=== PATIENT | female | born 1950 | race Caucasian/White ===

== ENCOUNTER 2018-10-27 13:19 | Inpatient (IN) | payer OTHER ==
[2018-10-27 14:30] LABS: Absolute Lymphocytes (CBC) 0.8 K/uL (0.7-4.9); Absolute Neutrophil 10.4 K/uL (1.8-8.0); Basophils % 0.2 % (0-1.3); Hematocrit 40.5 % (36.0-45.0); Lymphocytes % 6.3 % (15.3-44.8); Monocytes % 7.9 % (3.3-12.3); RBC Red Blood Cell Count 4.36 M/uL (3.86-4.86)
[2018-10-27 14:44] LABS: Albumin 3.4 g/dL (3.4-5.0); Magnesium 2.2 mg/dL (1.8-2.4); Potassium 3.7 mmol/L (3.5-5.1); Protein, Total 7.3 g/dL (6.4-8.2)
[2018-10-27 14:47] LABS: Troponin (Emerg Dept Use Only) 0.69 ng/mL (0.0-0.045)
--- NOTE | 2018-10-27 15:25 | RAD REPORT ---
EXAM DESCRIPTION: CT - Chest For Pe Angio - 10/27/2018 3:10 pm CLINICAL HISTORY: Acute onset shortness of breath COMPARISON: None. TECHNIQUE: Dynamically enhanced 3 mm thick images of the chest were obtained during administration o f approximately 150mL Isovue 370 IV contrast. Coronal and oblique MIP reconstruction images were gene rated and reviewed. Exam utilizes a protocol to evaluate the pulmonary arterial tree. All CT scans are performed using dose optimization technique as appropriate and may include automated exposure control or mA/KV adjustment according to patient size. FINDINGS: Patient has large pulmonary emboli at the bifurcation of each pulmonary artery into the lo bar branches. Pulmonary embolic disease extends into the left upper and lower lobe pulmonary arteries . Embolic disease extends into the right upper and right lower lobe pulmonary arteries. Right lower l obe embolic disease extends into segmental branches. The aorta as imaged shows no acute or suspicious finding. No pericardial thickening or effusion. Airspace opacification posterior gutter on the right could be pneumonia. In the setting of pulmonary embolic disease, pulmonary hemorrhage is not excluded. No pleural effusion or pleural thickening. No mediastinal or hilar suspicious masses. No chest wall masses or abnormal axillary lymphadenopathy. A 10 millimeter pulmonary nodule abuts the pleura lateral lower left lung field. This is centrally hy perdense and 160 Hounsfield units and is probably partially mineralized granuloma. Findings telephoned to Lexi in the emergency department 3:20 p.m. IMPRESSION: Extensive pulmonary embolic disease in each pulmonary artery extending into the left upp er, left lower, right upper and right lower lobe pulmonary arteries. Right lower lobe embolic disease extends into segmental branches. Patchy airspace opacification in the posterior gutter on the right. This is typically pneumonia. Give n the extent of pulmonary embolic disease, pulmonary hemorrhage is not excluded. No other significant or suspicious findings.
--- NOTE | 2018-10-27 15:29 | ER ---
Nurse's Notes [facility] Name: Olive Minor Age: 68 yrs Sex: Female : 1950 Arrival Date: 10/27/2018 Time: 13:22 Bed 4 Private MD: Diagnosis: Bilateral Pulmonary Embolism Presentation: 10/27 13:20 Presenting complaint: EMS states: pt had sudden SOB. PT was cold, pale and diaphoretic, ca1 SPO2 77% RA, increased to 88-90% on 2LPM O2. Transition of care: patient was not received from another setting of care. Onset of symptoms was October 27, 2018. Risk Assessment: Do you want to hurt yourself or someone else? Patient reports no desire to harm self or others. Initial Sepsis Screen: Does the patient meet any 2 criteria? RR > 20 per min. HR > 90 bpm. Does the patient have a suspected source of infection? No. Patient's initial sepsis screen is negative. Care prior to arrival: IV initiated. 20 GA, in the left antecubital area. 13:20 Method Of Arrival: EMS: [facility] ca1 13:20 Acuity: DAVE 2 ca1 Triage Assessment: 13:26 General: Appears in no apparent distress. ill, Behavior is calm, cooperative, ca1 appropriate for age. Pain: Complains of pain in left arm Pain does not radiate. Historical: - Allergies: 13:26 No Known Allergies; ca1 - Home Meds: 13:26 Lopressor Oral [Active]; ca1 - PMHx: 13:26 Hypertension; ca1 - PSHx: 13:26 None; ca1 - Immunization history:: Pneumococcal vaccine is up to date, Flu vaccine is not up to date. - Ebola Screening: : No symptoms or risks identified at this time. - Social history:: Smoking status: Patient/guardian denies using tobacco. Screenin:30 Abuse screen: Denies threats or abuse. Denies injuries from another. Nutritional ca1 screening: No deficits noted. Tuberculosis screening: No symptoms or risk factors identified. Fall Risk IV access (20 points). Assessment: 13:30 General: Appears in no apparent distress. uncomfortable, Behavior is calm, cooperative, ca1 appropriate for age. Pain: Complains of pain in left arm Pain does not radiate. Pain currently is 2 out of 10 on a pain scale. Pain began suddenly. Neuro: Level of Consciousness is awake, alert, obeys commands, Oriented to person, place, time, situation. Cardiovascular: Heart tones S1 S2 present Capillary refill < 3 seconds Patient's skin is warm and dry. Rhythm is sinus tachycardia. Respiratory: Airway is patent Respiratory effort is even, unlabored, Respiratory pattern is regular, symmetrical, Breath sounds are clear bilaterally. GI: Abdomen is flat, non-distended, Bowel sounds present X 4 quads. Abd is soft and non tender X 4 quads. : No signs and/or symptoms were reported regarding the genitourinary system. EENT: No signs and/or symptoms were reported regarding the EENT system. Derm: Skin is intact, Skin is pink, warm \T\ dry. Musculoskeletal: Circulation, motion, and sensation intact. 13:30 Reassessment: Pt's 2 year old grandson at bedside. PT reports she is the primary ca1 guardian of grandson and was unable to contact grandson's father to come and pick him up. 2-year old being taken care of by ER staff at this time. . 14:15 Reassessment: Patient appears in no apparent distress at this time. Patient and/or ca1 family updated on plan of care and expected duration. Pain level reassessed. Patient is alert, oriented x 3, equal unlabored respirations, skin warm/dry/pink. Instructed patient on bedrest. 14:20 Reassessment: Pt requested to go to restroom, emphasized importance of bedrest. ca1 Provided a bed najera, refused assistance and requested privacy. After using bed najera, pt reports of SOB, notified provider. 14:30 Reassessment: Pt reports feeling better. ca1 15:26 Reassessment: Patient appears in no apparent distress at this time. Patient and/or ca1 family updated on plan of care and expected duration. Pain level reassessed. Patient is alert, oriented x 3, equal unlabored respirations, skin warm/dry/pink. Dr. Velásquez at bedside. 15:30 Reassessment: Police was sent to pt's son address and they were unable to locate him. ca1 pipe and boiler covers supervisor notified and CPS notified by annual greenhouse manager (Denice Arambula RN). 16:31 Reassessment: Patient appears in no apparent distress at this time. Patient and/or ca1 family updated on plan of care and expected duration. Pain level reassessed. Patient is alert, oriented x 3, equal unlabored respirations, skin warm/dry/pink. Awaiting room assignment. 17:15 Reassessment: pipe and boiler covers supervisor reports CPS and pt's son on their way to picker box operator 1-year ca1 old. . 17:45 Reassessment: CPS and pt's son here to picker box operator 1-year old.. ca1 Vital Signs: 13:26 BP 144 / 102; Pulse 113; Resp 24; Temp 97.9; Pulse Ox 77% on R/A; Weight 61.23 kg; ca1 Height 5 ft. 4 in. (162.56 cm); Pain 2/10; 14:20 BP 137 / 91; Pulse 108; Resp 24; Pulse Ox 100% on Non-rebreather mask; ca1 15:19 BP 168 / 98; Pulse 118; Resp 24; Pulse Ox 99% on 5 lpm NC; ca1 16:24 BP 162 / 98; Pulse 98; Resp 24; Pulse Ox 95% on 5 lpm NC; ca1 17:18 BP 168 / 95; Pulse 116; Resp 23; Pulse Ox 95% on 5 lpm NC; ca1 13:26 Body Mass Index 23.17 (61.23 kg, 162.56 cm) ca1 ED Course: 13:22 Patient arrived in ED. ca1 13:22 Chika Navarro RN is Primary Nurse. ca1 13:24 Giacomo Velásquez MD is Attending Physician. ps1 13:25 Triage completed. ca1 13:26 Arm band placed on right wrist. ca1 13:30 Patient has correct armband on for positive identification. Placed in gown. Bed in low ca1 position. Call light in reach. Side rails up X2. tow truck driver on. Pulse ox on. NIBP on. Warm blanket given. Head of bed elevated. 13:30 Maintain EMS IV. Dressing intact. Good blood return noted. Site clean \T\ dry. Gauge \T\ ca 1 site: G20 RAC. IV is patent, is intact. 13:37 Radiology exam delayed due to lab results not completed at this time. (BUN/Creatinine). mw3 15:09 CT completed. Patient tolerated procedure well. Patient moved back from CT. mw3 15:10 CT Chest For PE Angio In Process Unspecified. EDMS 15:28 Nic Chong MD is Hospitalizing Provider. ps1 15:54 Inserted saline lock: 22 gauge in right wrist, using aseptic technique. ,using aseptic ca1 technique. by Dottie Beltran RN. 17:34 No provider procedures requiring assistance completed. Patient admitted, IV remains in ca1 place. Administered Medications: 15:56 Drug: Heparin (DVT/PE- Bolus per protocol) - HEParin 80 units/kg {Co-Signature: aa5 ca1 (Dottie Beltran RN).} Route: IVP; Site: right wrist; 17:10 Follow up: Response: No adverse reaction ca1 15:59 Drug: Heparin (DVT/PE Drip) 18 units/kg/hr - (HEParin 12930 units, D5W 500 ml) ca1 {Co-Signature: aa5 (Dottie Beltran RN).} Route: IV; Rate: calculated rate; Site: right wrist; 17:10 Follow up: IV Status: Infusion continued upon admission ca1 17:05 Drug: Reglan 10 mg Route: IVP; Site: left antecubital; ca1 17:35 Follow up: Response: No adverse reaction; Vomiting decreased ca1 Outcome: 15:29 Decision to Hospitalize by Provider. ps1 17:34 Admitted to ICU accompanied by nurse, via stretcher, room 7, with oxygen, on monitor, ca1 with chart, Report called to Mary Lilly RN 17:34 Condition: stable 17:34 Instructed on the need for admit, Demonstrated understanding of instructions. 17:58 Patient left the ED. la1 Signatures: Dispatcher [employer] EDMS Júnior Boykin RN RN la1 Giacomo Velásquez MD MD ps1 Dalia Paulson mw3 Chika Navarro RN RN ca1 Dottie Beltran RN aa5 Corrections: (The following items were deleted from the chart) 17:33 17:18 BP 168 / 95; Pulse 116bpm; Resp 23bpm; Pulse Ox 95% RA; ca1 ca1
--- NOTE | 2018-10-27 15:30 | EDPHYS ---
Physician Documentation [facility] Name: Olive Minor Age: 68 yrs Sex: Female : 1950 Arrival Date: 10/27/2018 Time: 13:22 Bed 4 Private MD: ED Physician Giacomo Velásquez HPI: 10/27 14:32 This 68 yrs old Female presents to ER via EMS with complaints of Shortness Of ps1 Breath. 14:32 patient was out shopping with grandson and developed acute onset shortness of breath. ps1 She was diagnosed with pleurisy by her PCP for left sided chest pain that radiated to her back a week ago. She was brought in hypoxic 75% SPO2 and tachycardic. No DVT hx or PE. No recent trips. No estrogens. No CA. . Historical: - Allergies: 13:26 No Known Allergies; ca1 - Home Meds: 13:26 Lopressor Oral [Active]; ca1 - PMHx: 13:26 Hypertension; ca1 - PSHx: 13:26 None; ca1 - Immunization history:: Pneumococcal vaccine is up to date, Flu vaccine is not up to date. - Ebola Screening: : No symptoms or risks identified at this time. - Social history:: Smoking status: Patient/guardian denies using tobacco. ROS: 14:32 Constitutional: Negative for fever, chills, and weight loss, Eyes: Negative for injury, ps1 pain, redness, and discharge, Cardiovascular: Negative for chest pain, palpitations, and edema, Abdomen/GI: Negative for abdominal pain, nausea, vomiting, diarrhea, and constipation, Back: Negative for injury and pain, MS/Extremity: Negative for injury and deformity, Skin: Negative for injury, rash, and discoloration, Neuro: Negative for headache, weakness, numbness, tingling, and seizure. 14:32 Respiratory: Positive for shortness of breath, and hypoxia. Exam: 14:32 Constitutional: This is a well developed, well nourished patient who is awake, alert, ps1 and in no acute distress. Head/Face: Normocephalic, atraumatic. Eyes: Pupils equal round and reactive to light, extra-ocular motions intact. Lids and lashes normal. Conjunctiva and sclera are non-icteric and not injected. Chest/axilla: Normal chest wall appearance and motion. Nontender with no deformity. No lesions are appreciated. Abdomen/GI: Soft, non-tender, with normal bowel sounds. No distension or tympany. No guarding or rebound. No evidence of tenderness throughout. Skin: Warm, dry with normal turgor. Normal color with no rashes, no lesions, and no evidence of cellulitis. MS/ Extremity: Pulses equal, no cyanosis. Neurovascular intact. Full, normal range of motion. Neuro: Awake and alert, GCS 15, oriented to person, place, time, and situation. Cranial nerves II-XII grossly intact. Sensory grossly intact. 14:32 Cardiovascular: Rate: tachycardic, Rhythm: regular. 14:32 Respiratory: the patient does not display signs of respiratory distress, Respirations: tachypnea, that is mild. Vital Signs: 13:26 BP 144 / 102; Pulse 113; Resp 24; Temp 97.9; Pulse Ox 77% on R/A; Weight 61.23 kg; ca1 Height 5 ft. 4 in. (162.56 cm); Pain 2/10; 14:20 BP 137 / 91; Pulse 108; Resp 24; Pulse Ox 100% on Non-rebreather mask; ca1 15:19 BP 168 / 98; Pulse 118; Resp 24; Pulse Ox 99% on 5 lpm NC; ca1 16:24 BP 162 / 98; Pulse 98; Resp 24; Pulse Ox 95% on 5 lpm NC; ca1 17:18 BP 168 / 95; Pulse 116; Resp 23; Pulse Ox 95% on 5 lpm NC; ca1 13:26 Body Mass Index 23.17 (61.23 kg, 162.56 cm) ca1 MDM: 13:32 Patient medically screened. ps1 15:29 Data reviewed: vital signs, nurses notes, lab test result(s), EKG, radiologic studies, ps1 CT scan, and as a result, I will admit patient. Counseling: I had a detailed discussion with the patient and/or guardian regarding: the historical points, exam findings, and any diagnostic results supporting the discharge/admit diagnosis, the need for further work-up and treatment in the hospital. 15:32 ED course: Decision not to thrombolysis for submasssive PE as patient possibly has ps1 pulmonary hemorrhage on CT. . 10/27 13:32 Order name: CBC with Diff; Complete Time: 15:44 ps1 02/02 13:32 Order name: Lipase; Complete Time: 14:53 ps1 0202 13:32 Order name: Magnesium; Complete Time: 14:53 ps1 02/02 13:32 Order name: NT PRO-BNP; Complete Time: 14:53 ps1 0202 13:32 Order name: PT-INR; Complete Time: 14:53 ps1 02/ 13:32 Order name: Ptt, Activated; Complete Time: 14:53 ps1 02 13:32 Order name: CT Chest For PE Angio; Complete Time: 15:29 ps1 10/27 13:32 Order name: Troponin (emerg Dept Use Only); Complete Time: 14:53 ps1 10/27 13:32 Order name: EKG; Complete Time: 13:32 ps1 02 13:32 Order name: CMP; Complete Time: 14:53 ps1 10/27 14:41 Order name: CBC Smear Scan; Complete Time: 15:44 EDMS / 13:32 Order name: Cardiac monitoring; Complete Time: 13:33 ps1 10/27 13:32 Order name: EKG - Nurse/Tech; Complete Time: 13:33 ps1 10/27 13:32 Order name: IV Saline Lock; Complete Time: 13:33 ps1 10/27 13:32 Order name: Labs collected and sent; Complete Time: 13:33 ps1 10/27 13:32 Order name: O2 Per Protocol; Complete Time: 13:34 ps1 10/27 13:32 Order name: O2 Sat Monitoring; Complete Time: 13:34 ps1 EC:18 Rate is 107 beats/min. Rhythm is regular. QRS [place] is Normal. CA interval is normal. ps1 QRS interval is prolonged. QT interval is normal. No Q waves. T waves are Normal. No ST changes noted. Clinical impression: NSR w/ Non-specific ST/T Changes and incomplete RBBB. Administered Medications: 15:56 Drug: Heparin (DVT/PE- Bolus per protocol) - HEParin 80 units/kg {Co-Signature: aa5 ca1 (Dottie Beltran RN).} Route: IVP; Site: right wrist; 17:10 Follow up: Response: No adverse reaction ca1 15:59 Drug: Heparin (DVT/PE Drip) 18 units/kg/hr - (HEParin 79265 units, D5W 500 ml) ca1 {Co-Signature: aa5 (Dottie Beltran RN).} Route: IV; Rate: calculated rate; Site: right wrist; 17:10 Follow up: IV Status: Infusion continued upon admission ca1 17:05 Drug: Reglan 10 mg Route: IVP; Site: left antecubital; ca1 17:35 Follow up: Response: No adverse reaction; Vomiting decreased ca1 Disposition: 10/27/18 15:29 Hospitalization ordered by Nic Chong for Inpatient Admission. Preliminary diagnosis is Bilateral Pulmonary Embolism. - Bed requested for Intensive Care Unit. - Status is Inpatient Admission. la1 - Condition is Serious. - Problem is new. - Symptoms are unchanged. UTI on Admission? No Signatures: Dispatcher [employer] EDMS Priyanka Gleason RN RN mw Júnior Boykin RN RN la1 Giacomo Velásquez MD MD ps1 Chika Navarro RN RN ca1 Dottie Beltran RN aa5 Corrections: (The following items were deleted from the chart) 17:02 15:29 Hospitalization Ordered by Nic Chong MD for Inpatient Admission. Preliminary mw diagnosis is Bilateral Pulmonary Embolism. Bed requested for Intensive Care Unit. Status is Inpatient Admission. Condition is Serious. Problem is new. Symptoms are unchanged. UTI on Admission? No. ps1 17:58 17:02 10/27/2018 15:29 Hospitalization Ordered by Nic Chong MD for Inpatient la1 Admission. Preliminary diagnosis is Bilateral Pulmonary Embolism. Bed requested for Intensive Care Unit. Status is Inpatient Admission. Condition is Serious. Problem is new. Symptoms are unchanged. UTI on Admission? No. mw
[2018-10-27 15:40] LABS: Platelet Estimate ADEQ; Urine White Blood Cell Casts OK
[2018-10-27 15:41] LABS: Blood Morphology Comment NOT SEEN (NOT SEEN)
[2018-10-27] MEDS ORDERED: HEPARIN/D5W 25,000 UNIT/500 ML BAG IV ONE (15:56)
[2018-10-27] MEDS ORDERED: HEPARIN 5000 UNIT/ML 1 ML VIAL ONE (15:56)
[2018-10-27] MEDS ORDERED: METOCLOPRAMIDE 10 MG/2mL INJ ONE (17:14)
[2018-10-27] MEDS ORDERED: HEPARIN/D5W 25,000 UNIT/500 ML BAG IV SCH (17:50)
[2018-10-27] MEDS ORDERED: ONDANSETRON 4 MG/2 ML VIAL IV ONE (18:09)
[2018-10-27] MEDS ORDERED: IBUPROFEN 400 MG TAB PO PRN (18:15)
[2018-10-27] MEDS ORDERED: MORPHINE 2 MG/ML SYR IV PRN (18:15)
[2018-10-27] MEDS ORDERED: ONDANSETRON 4 MG/2 ML VIAL ONE (18:16)
--- NOTE | 2018-10-27 18:17 | P.HP ---
Patient History Date of Service: 10/27/18 Reason for admission: Shortness of breath History of Present Illness: This is a 68 yr old female with HTN and collitis admitted for shortness of breath. Per patient, she was having trouble taking deep breaths about 2 weeks ago, she went to her PCP and was treated with prednisone for pleurisy. This morning, she states that it was different and she could not take in deep enough breaths and felt like she could not breathe. She decided to come to the ER. She denied any chest pain, dizziness, headache, nausea/vomiting(prior to ER), GI or complaints. In the ED, a CT scan was done, which showed extensive Pulmonary embolism in each pulmonary artery, into left upper, right upper and right lower lobes. She was hemodynamically stable in the ED except for tachycardia and requiring oxygen via face mask. SHe was started on a heparin drip in the ED. At the time of my exam, patient was alert and oriented x 3, though looked ill, was nauseous and had billious vomiting. She will be admitted to the ICU for further evaluation. Allergies No Known Allergies Allergy (Unverified 10/27/18 17:23) Home Medications: Metoprolol Tartrate [Lopressor] 50 mg PO BID 10/27/18 predniSONE [Deltasone*] 20 mg PO TID 10/27/18 - Family History Father -: Heart disease, Hypertension Mother -: Hypertension, Stroke Brother -: Cancer Notes: lung ca Sister -: Hypertension, GI disease, Diabetes, Stroke Review of Systems 10-point ROS is otherwise unremarkable Physical Examination - Physical Exam General: Alert, Oriented x3, Mild distress, Moderate distress HEENT: Atraumatic, PERRLA, Mucous membr. moist/pink, EOMI, Sclerae nonicteric Neck: Supple, 2+ carotid pulse no bruit, No LAD, Without JVD or thyroid abnormality Respiratory: Dull Cardiovascular: Regular rate/rhythm, Normal S1 S2 Gastrointestinal: Normal bowel sounds, No tenderness Musculoskeletal: No tenderness Integumentary: No rashes Neurological: Normal gait, Normal speech, Normal strength at 5/5 x4 extr, Normal tone, Normal affect Lymphatics: No axilla or inguinal lymphadenopathy - Studies Laboratory Data (last 24 hrs) 10/27/18 13:56: PT 11.8, INR 1.00, APTT 24.0 L 10/27/18 13:56: Sodium 140, Potassium 3.7, BUN 30 H, Creatinine 0.92, Glucose 124 H, Magnesium 2.2, Total Bilirubin 1.0, AST 38 H, ALT 44, Alkaline Phosphatase 79, Lipase 150 10/27/18 13:56: WBC 12.1 H, Hgb 13.0, Hct 40.5, Plt Count 255 Assessment and Plan - Problems (Diagnosis) (1) Pulmonary embolism Current Visit: Yes Status: Acute Qualifiers: Pulmonary embolism type: saddle Chronicity: acute (2) Hypertension Current Visit: Yes Status: Acute - Plan Admit patient to ICU continue Heparin drip ECHO stat ordered to evaluate for RV strain Cardiology and pulmonology consulted Will restart home medications as tolerated. DVT prophylaxis: As above Diet: NPO Disposition: Admit to ICU, continue anticoagulation - Advance Directives Does patient have a Living Will: No Does patient have a Durable POA for Healthcare: No
[2018-10-27] MEDS ORDERED: INFLUENZA VACCINE (for 3y+) 0.5 ML DOSE IMVAC ONE (19:00)
[2018-10-28] MEDS ORDERED: HYDROCORTISONE SUC 100 MG INJ IV ONE (01:40)
[2018-10-28] MEDS ORDERED: CODEINE 30MG/APAP 300MG TAB PO PRN (01:41)
[2018-10-28] MEDS ORDERED: LOPERAMIDE HCL 2 MG CAPSULE PO STA ×2 (01:46→09:16)
[2018-10-28] MEDS ORDERED: LOPERAMIDE HCL 2 MG CAPSULE PO ONE (03:27)
[2018-10-28 05:25] LABS: Absolute Lymphocytes (CBC) 0.4 K/uL (0.7-4.9); Absolute Monocytes 0.6 K/uL (0.1-1.3); Absolute Neutrophil 7.3 K/uL (1.8-8.0); Basophils % 0.1 % (0-1.3); Eosinophils % 0.2 % (0-4.4); Hematocrit 39.9 % (36.0-45.0); Lymphocytes % 4.3 % (15.3-44.8); RBC Red Blood Cell Count 4.36 M/uL (3.86-4.86)
[2018-10-28 05:41] LABS: Albumin 3.2 g/dL (3.4-5.0); Bilirubin Total 1.2 mg/dL (0.2-1.0); Potassium 3.6 mmol/L (3.5-5.1)
--- NOTE | 2018-10-28 06:20 | EKG ---
Test Date: 2018-10-27 Test Time: 13:24:56 Hospital Mortician: COLE MEASUREMENT RESULTS: Intervals: Rate: 107 NE: 172 QRSD: 94 QT: 328 QTc: 437 [place]: P: 60 NE: 172 QRS: 1 T: 16 INTERPRETIVE STATEMENTS: Sinus tachycardia Incomplete right bundle branch block Cannot rule out Anterior infarct, age undetermined Abnormal ECG No previous ECG available for comparison Electronically Signed On 10-28-18 06:16:39 MOVIE STAR by Moe Argueta
[2018-10-28] MEDS: METOPROLOL TAR 50 MG TAB PO SCH ×2 (08:44→20:32)
--- NOTE | 2018-10-28 09:32 | P.PN ---
Subjective Date of Service: 10/28/18 Subjective: No new changes, No C/O voiced, Improving Review of Systems 10-point ROS is otherwise unremarkable Physical Examination - Vital Signs Temperature: 97.8 F Blood Pressure: 94/53 Pulse: 111 Respirations: 22 Pulse Ox (%): 96 - Physical Exam General: Alert, In no apparent distress, Oriented x3 Respiratory: Clear to auscultation bilaterally, Diminished Cardiovascular: Regular rate/rhythm, Normal S1 S2 Gastrointestinal: Normal bowel sounds, Soft and benign, Non-distended Musculoskeletal: No clubbing, No swelling - Studies Laboratory Data (last 24 hrs) 10/27/18 13:56: PT 11.8, INR 1.00, APTT 24.0 L 10/27/18 13:56: Sodium 140, Potassium 3.7, BUN 30 H, Creatinine 0.92, Glucose 124 H, Magnesium 2.2, Total Bilirubin 1.0, AST 38 H, ALT 44, Alkaline Phosphatase 79, Lipase 150 10/27/18 13:56: WBC 12.1 H, Hgb 13.0, Hct 40.5, Plt Count 255 Assessment & Plan - Problems (Diagnosis) (1) Pulmonary embolism Current Visit: Yes Status: Acute Qualifiers: Pulmonary embolism type: saddle Chronicity: acute - Plan patient respiratory status is stable. Echocardiogram is pending. Make sure there is no right ventricular strain. Continue with anticoagulation. Discharge Plan: Home Plan to discharge in: Greater than 2 days - Advance Directives Does patient have a Living Will: No Does patient have a Durable POA for Healthcare: No - Code Status/Comfort Care Code Status Assessed: No Critical Care: No Time Spent Managing PTS Care (In Minutes): 45
[2018-10-28] MEDS ORDERED: POTASSIUM CL SA 10 MEQ TAB PO ONE (09:41)
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
[2018-10-28] MEDS: ENOXAPARIN 60 MG/0.6 ML SQ SCH ×2 (11:39→20:33)
[2018-10-28] MEDS: PANTOPRAZOLE 40MG TABLET PO SCH (13:30)
[2018-10-28] MEDS: predniSONE 20 MG TAB PO SCH ×2 (15:29→20:31)
--- NOTE | 2018-10-28 23:57 | P.PN ---
Subjective Date of Service: 10/28/18 Chief Complaint: Shortness of breath Subjective: No C/O voiced, Improving Patient seen and examined at bedside. Friends at bedside. Chart reviewed and case discussed with Dr. Argueta and Dr. Whatley Patient reports improvement; still requiring 2 L oxygen via nasal canula Complaints of diarrhea, states she usually takes steroids for her ulcerative collitis. Nausea/vomiting resolved. Review of Systems 10-point ROS is otherwise unremarkable Physical Examination - Vital Signs Temperature: 98.4 F Blood Pressure: 115/71 Pulse: 123 Respirations: 20 Pulse Ox (%): 93 - Physical Exam General: Alert, In no apparent distress, Oriented x3 HEENT: Atraumatic, PERRLA, EOMI Neck: Supple, JVD not distended Respiratory: Clear to auscultation bilaterally, Normal air movement Cardiovascular: Regular rate/rhythm, Normal S1 S2 Gastrointestinal: Normal bowel sounds, No tenderness Musculoskeletal: No tenderness Integumentary: No rashes Neurological: Normal speech, Normal tone, Normal affect Lymphatics: No axilla or inguinal lymphadenopathy Assessment And Plan - Current Problems (Diagnosis) (1) Pulmonary embolism Current Visit: Yes Status: Acute Qualifiers: Pulmonary embolism type: saddle Chronicity: acute (2) Hypertension Current Visit: Yes Status: Acute - Plan Patient remained stable throughtout the night. discontinue Heparin drip; change to lovenox. She will need lifelong anticoagulation. Will need insurance verification if xarelto is covered and she will need Rx for PO anticoagulation prior to discharge. ECHO stat ordered, normal with no RV strain. Cardiology and pulmonology consulted. Recommendations appreciated. Nausea/vomiting resolved Loperamide ordered for her diarrhea. Restarted home steroids. DVT prophylaxis: As above Diet: NPO Disposition: As patient remains HDS, will transfer to the floor. Continue anticoagulation
[2018-10-29] MEDS: PANTOPRAZOLE 40MG TABLET PO SCH (05:18)
[2018-10-29 06:23] LABS: Absolute Lymphocytes (CBC) 0.6 K/uL (0.7-4.9); Absolute Monocytes 0.6 K/uL (0.1-1.3); Absolute Neutrophil 6.3 K/uL (1.8-8.0); Basophils % 0.1 % (0-1.3); Hematocrit 39.2 % (36.0-45.0); Lymphocytes % 8.5 % (15.3-44.8); MPV 9.1 fL (7.6-11.3); Monocytes % 8.4 % (3.3-12.3); RBC Red Blood Cell Count 4.27 M/uL (3.86-4.86)
[2018-10-29 06:32] LABS: Albumin 2.8 g/dL (3.4-5.0); Bilirubin Total 1.2 mg/dL (0.2-1.0); Potassium 4.8 mmol/L (3.5-5.1); Protein, Total 6.5 g/dL (6.4-8.2)
--- NOTE | 2018-10-29 07:11 | ECHO ---
HEIGHT: 5 ft 4 in WEIGHT: 133 lb 8 oz DATE OF STUDY: 10/27/[address]: Nic Chong MD 2-DIMENSIONAL: YES M.MODE: YES DOPPLER: YES COLOR FLOW: YES TDS: PORTABLE: DEFINITY: BUBBLE STUDY: DIAGNOSIS: RULE OUT RIGHT VENTRICULAR STRAIN CARDIAC HISTORY: CATHERIZATION: NO SURGERY: NO PROSTHETIC VALVE: NO PACEMAKER: NO MEASUREMENTS (cm) DIASTOLIC (NORMALS) SYSTOLIC (NORMALS) IVSd 1.0 (0.6-1.2) LA Diam 2.4 (1.9-4.0) LVEF 66% LVIDd 2.8 (3.5-5.7) LVIDs 1.8 (2.0-3.5) %FS 35% LVPWd 1.2 (0.6-1.2) Ao Diam 2.8 (2.0-3.7) 2 DIMENSIONAL ASSESSMENT: RIGHT ATRIUM: NORMAL LEFT ATRIUM: NORMAL RIGHT VENTRICLE: NORMAL LEFT VENTRICLE: NORMAL TRICUSPID VALVE: NORMAL MITRAL VALVE: NORMAL PULMONIC VALVE: NORMAL AORTIC VALVE: NORMAL PERICARDIAL EFFUSION: NONE AORTIC ROOT: NORMAL LEFT VENTRICULAR WALL MOTION: NORMAL DOPPLER/COLOR FLOW: MILD AORTIC AND TRICUSPID REGURGITATION. ESTIMATED RIGHT VENTRICULAR SYSTOLIC PRESSURE 40 mmHg (MILD PULMONARY HYPERTENSION). COMMENTS: NORMAL 2-DIMENSIONAL ECHOCARDIOGRAM. MILD AORTIC AND TRICUSPID REGURGITATION. MILD PULMONARY HYPERTENSION. TECHNOLOGIST: STANLEY KIDD
--- NOTE | 2018-10-29 09:26 | EKG ---
Test Date: 2018-10-28 Test Time: 17:25:51 Anchor Operator: VANGIE MEASUREMENT RESULTS: Intervals: Rate: 115 DE: 140 QRSD: 86 QT: 322 QTc: 445 [place]: P: 63 DE: 140 QRS: -13 T: 5 INTERPRETIVE STATEMENTS: Sinus tachycardia Nonspecific ST abnormality Abnormal ECG Compared to ECG 10/27/2018 13:24:56 ST (T wave) deviation now present Incomplete right bundle-branch block no longer present Myocardial infarct finding no longer present Electronically Signed On 10-29-18 09:25:04 ETHANOL OPERATIONS MANAGER by Moe Argueta
[2018-10-29] MEDS: predniSONE 20 MG TAB PO SCH (09:28)
[2018-10-29] MEDS: ENOXAPARIN 60 MG/0.6 ML SQ SCH ×2 (09:28→22:08)
[2018-10-29] MEDS: METOPROLOL TAR 50 MG TAB PO SCH (09:28)
--- NOTE | 2018-10-29 13:05 | P.PN ---
Subjective Date of Service: 10/29/18 Primary Care Provider: Dr. Gunter([place], [place]) Chief Complaint: Shortness of breath Subjective: Other (Patient doing better today. Room-air saturations stable. Decrease levels when with exertion.) Physical Examination - Vital Signs Temperature: 98 F Blood Pressure: 96/60 Pulse: 79 Respirations: 18 Pulse Ox (%): 89 - Physical Exam General: Alert, In no apparent distress, Oriented x3, Cooperative HEENT: Atraumatic Neck: Supple Respiratory: Clear to auscultation bilaterally, Normal air movement Cardiovascular: Normal pulses, Regular rate/rhythm Gastrointestinal: Normal bowel sounds, Soft and benign, Non-distended, No masses , No rebound, No guarding Musculoskeletal: No erythema, No tenderness, No warmth Integumentary: No tenderness/swelling, No erythema, No warmth, No cyanosis Neurological: Normal speech, Normal strength at 5/5 x4 extr, Normal tone, Normal affect - Studies Medications List Reviewed: Yes Assessment & Plan Discharge Plan: Home Plan to discharge in: 24 Hours Physician Review Additional Text: Impression: Shortness of breath secondary to bilateral pulmonary embolism with noted hypoxia Hypertension Elevated liver function Plan: Shortness of breath secondary to bilateral pulmonary embolism with noted hypoxia : Patient still with hypoxia with exertion. Will need to maintain adequate oxygenation before discharge. Case discussed with pulmonology. Will continue with anti coagulation therapy. Will check to see if patient qualifies to get Eliquis at discharge. Will check room air ABG. Will discontinue metoprolol due to low blood pressure. Will continue to reassess. Likely discharge in the next 24 hr. Hypertension: Blood pressure low. Will discontinue metoprolol. Will monitor this closely. Elevated liver function: Slight elevation in liver function. Will check hepatitis panel. Will recheck liver function tests in the morning. Time Spent Managing Pts Care (In Minutes): 55
[2018-10-29 15:01] LABS: Blood Gas Oxyhemoglobin 91.4 % (94-97); Blood O2 Saturation 92.9 % (92-98.5)
[2018-10-29] MEDS ORDERED: LOPERAMIDE HCL 2 MG CAPSULE PO STA (21:41)
[2018-10-30 04:35] LABS: Absolute Monocytes 1.1 K/uL (0.1-1.3); Absolute Neutrophil 8.7 K/uL (1.8-8.0); Basophils % 0.1 % (0-1.3); Eosinophils % 0.1 % (0-4.4); Hematocrit 38.7 % (36.0-45.0); Lymphocytes % 9.4 % (15.3-44.8); Monocytes % 10.2 % (3.3-12.3)
[2018-10-30 04:46] LABS: Albumin 2.7 g/dL (3.4-5.0); Bilirubin Total 0.9 mg/dL (0.2-1.0); Potassium 4.2 mmol/L (3.5-5.1); Protein, Total 6.2 g/dL (6.4-8.2)
[2018-10-30] MEDS: PANTOPRAZOLE 40MG TABLET PO SCH (06:30)
--- NOTE | 2018-10-30 08:31 | P.PN ---
Subjective Date of Service: 10/29/18 Primary Care Provider: Dr. Gunter([place], [place]) Chief Complaint: Pulmonary embolism Patient is complaining of dyspnea on exertion blood pressure is little low feels weak and tired low sats Review of Systems General: Weakness Respiratory: Shortness of Breath Physical Examination - Vital Signs Temperature: 97.0 F Blood Pressure: 121/86 Pulse: 56 Respirations: 18 Pulse Ox (%): 95 - Physical Exam General: Alert, In no apparent distress, Oriented x3 Respiratory: Clear to auscultation bilaterally Cardiovascular: No edema, Regular rate/rhythm - Studies Medications List Reviewed: Yes Assessment & Plan - Problems (Diagnosis) (1) Pulmonary embolism Current Visit: Yes Status: Acute Plan: Patient admitted with bilateral pulmonary embolism evidence of cor pulmonale still has some dyspnea on exertion with low sats room-air blood gas is satisfactory blood pressures lobe may be secondary to her metoprolol agree with stopping metoprolol continue with enoxaparin telephone exchange operator to p.o. anticoagulants in the morning Qualifiers: Pulmonary embolism type: saddle Chronicity: acute Physician Review Additional Text: Impression: Shortness of breath secondary to bilateral pulmonary embolism with noted hypoxia Hypertension Elevated liver function Plan: Shortness of breath secondary to bilateral pulmonary embolism with noted hypoxia : Patient still with hypoxia with exertion. Will need to maintain adequate oxygenation before discharge. Case discussed with pulmonology. Will continue with anti coagulation therapy. Will check to see if patient qualifies to get Eliquis at discharge. Will check room air ABG. Will discontinue metoprolol due to low blood pressure. Will continue to reassess. Likely discharge in the next 24 hr. Hypertension: Blood pressure low. Will discontinue metoprolol. Will monitor this closely. Elevated liver function: Slight elevation in liver function. Will check hepatitis panel. Will recheck liver function tests in the morning.
[2018-10-30] MEDS: ENOXAPARIN 60 MG/0.6 ML SQ SCH ×2 (08:33→22:12)
--- NOTE | 2018-10-30 08:33 | P.PN ---
Subjective Date of Service: 10/31/18 Primary Care Provider: Dr. Gunter([place], [place]) Chief Complaint: Pulmonary embolism Patient is mainly complaining of problem with her colon some irritability has weakness dyspnea on exertion denies any cough sputum hemoptysis Review of Systems Unremarkable Physical Examination - Vital Signs Temperature: 97.0 F Blood Pressure: 121/86 Pulse: 56 Respirations: 18 Pulse Ox (%): 95 - Physical Exam General: Alert, In no apparent distress, Oriented x3 Respiratory: Clear to auscultation bilaterally Cardiovascular: No edema, Regular rate/rhythm Gastrointestinal: Normal bowel sounds, Tenderness (LLQ) - Studies Medications List Reviewed: Yes Assessment & Plan - Problems (Diagnosis) (1) Pulmonary embolism Current Visit: Yes Status: Acute Plan: Patient is doing better with less dyspnea on exertion hemodynamically stable blood gases yesterday was satisfactory PO2 on room air was 67 complaining about the expense of her medications hospitalist to review and consider alternatives including warfarin she will be requiring lifelong anticoagulation Qualifiers: Pulmonary embolism type: saddle Chronicity: acute (2) Abdominal abscess Current Visit: Yes Status: Acute Plan: Small abscess.GS consult pending Discharge Plan: Home Physician Review Additional Text: Impression: Shortness of breath secondary to bilateral pulmonary embolism with noted hypoxia Hypertension Elevated liver function Plan: Shortness of breath secondary to bilateral pulmonary embolism with noted hypoxia : Patient still with hypoxia with exertion. Will need to maintain adequate oxygenation before discharge. Case discussed with pulmonology. Will continue with anti coagulation therapy. Will check to see if patient qualifies to get Eliquis at discharge. Will check room air ABG. Will discontinue metoprolol due to low blood pressure. Will continue to reassess. Likely discharge in the next 24 hr. Hypertension: Blood pressure low. Will discontinue metoprolol. Will monitor this closely. Elevated liver function: Slight elevation in liver function. Will check hepatitis panel. Will recheck liver function tests in the morning.
[2018-10-30] MEDS ORDERED: ONDANSETRON 4 MG/2 ML VIAL IV PRN (08:51)
[2018-10-30] MEDS ORDERED: predniSONE 10 MG TAB PO SCH (09:00)
--- NOTE | 2018-10-30 11:56 | RAD REPORT ---
EXAM DESCRIPTION: CTAbdomen Pelvis W Contrast - 10/30/2018 11:43 am CLINICAL HISTORY: Abdominal pain. left lower quadrant abd. pain, HX of colitis COMPARISON: Chest For Pe Angio dated 10/27/2018 TECHNIQUE: Biphasic CT imaging of the abdomen and pelvis was performed with 100 ml non-ionic IV cont rast. All CT scans are performed using dose optimization technique as appropriate and may include automated exposure control or mA/KV adjustment according to patient size. FINDINGS: Respiratory artifact limits lung base assessment. Please reference dedicated CT chest 10/2018 for lung base findings. Mild fatty liver is seen. Cholecystectomy clips are noted. Common bile duct is prominent measuring 12 mm. Pancreatic duct is slightly prominent. The spleen, adrenal glands, pancreas and left kidney show no concerning finding. Small cortical cyst present left kidney. Right kidney contains a large 6 x 5 cm cyst medially. No bowel obstruction, free air, free fluid or abscess. Moderate thickening of a 5 cm segment of the s igmoid colon is present in the left lower quadrant. Several diverticula are present in this region. M oderate pericolonic inflammatory changes are present. Small peridiverticular abscess is present measu ring 22 x 13 mm. A small amount of extraluminal air is also present in the region. The appendix is no nvisualized. No evidence of significant lymphadenopathy. No suspicious bony findings. 2.5 cm right ovarian cystic lesion. IMPRESSION: 5 cm length of inflamed sigmoid colon is most compatible with moderate acute diverticuli tis. 22 x 13 mm peridiverticular abscess suspected.
--- NOTE | 2018-10-30 14:32 | P.PN ---
Subjective Date of Service: 10/30/18 Primary Care Provider: Dr. Gunter([place], [place]) Chief Complaint: Pulmonary embolism Subjective: Other (Patient with left lower quadrant abdominal pain, some nausea this morning) Physical Examination - Vital Signs Temperature: 98.6 F Blood Pressure: 128/66 Pulse: 122 Respirations: 18 Pulse Ox (%): 95 - Physical Exam General: Alert, In no apparent distress, Oriented x3, Cooperative HEENT: Atraumatic Neck: Supple Respiratory: Clear to auscultation bilaterally, Normal air movement Cardiovascular: Normal pulses, Regular rate/rhythm Gastrointestinal: Normal bowel sounds, Soft and benign, Non-distended, No masses , No rebound, No guarding, Tenderness (Pain to the left lower quadrant) Musculoskeletal: No erythema, No tenderness, No warmth Integumentary: No tenderness/swelling, No erythema, No warmth, No cyanosis Neurological: Normal speech, Normal strength at 5/5 x4 extr, Normal tone - Studies Medications List Reviewed: Yes Assessment & Plan Discharge Plan: Home Plan to discharge in: 48 Hours - Code Status/Comfort Care Code Status: Full Code Physician Review Additional Text: Impression: Shortness of breath secondary to bilateral pulmonary embolism with noted hypoxia Hypertension Elevated liver function Acute sigmoid diverticulitis with possible 22 x 13 mm peridiverticular abscess Plan: Shortness of breath secondary to bilateral pulmonary embolism with noted hypoxia : Patient shortness of breath improved. Will wean off oxygen. Will need to verify what patient will be able to afford at discharge. Will check to see how much it will cost for either Eliquis or Xarelto. Hypertension: Metoprolol discontinued yesterday. Will continue to monitor closely. Patient may require low-dose metoprolol if blood pressure elevated. Elevated liver function: This has improved. Will continue monitor closely. Acute sigmoid diverticulitis with possible 22 x 13 mm peridiverticular abscess: Patient had acute abdominal pain this morning. Patient with noted diverticulitis after CT scan. Possible lindy diverticular abscess noted. Will keep the patient NPO. Will check blood cultures. Will start Cipro and Flagyl. Patient with history diverticulosis. Will consult surgery to further evaluate. Will consider advancing diet once significantly improved and if okay with surgery. Time Spent Managing Pts Care (In Minutes): 55
[2018-10-30] MEDS: NA CHLORIDE 0.9% 1,000 ML IV SCH (15:00)
[2018-10-30] MEDS: METRONIDAZOLE 500mg IVPB 500 MG/100 ML BAG IV SCH (16:05)
--- NOTE | 2018-10-30 18:50 | P.CNS ---
Date of Consult: 10/30/18 PC: I was asked to see this 68-year-old female in regards to her left lower quadrant abdominal pain. HPC: Patient noticed she was having severe shortness of breath. Could not catch her air. Came to the emergency room for evaluation and treatment. Also started having some left lower quadrant abdominal pain that she initially thought was a flare up of her colitis. PMH: Colitis PSHx: Previous cholecystectomy previous colonoscopies (last was 5 years ago) SOC: No known allergies SYS REVIEW: States she is otherwise in good health, was out shopping when this occurred, she is from [place] O/E awake alert comfortable at the moment HEENT: Within normal limits Chest: Chest movement equal bilaterally ABD: Tender, no guarding or rebound however in the left lower quadrant LOCO: Intact DATA: CT scan demonstrates pulmonary emboli. He she also has a small 2 x 3 cm abscess under sigmoid colon. There is also an area approximately 6 cm in length the shows colitis. (an asymptomatic O right ovarian and right renal cyst are also visualize, noncontributory reached to her problem at the moment) IMPRESSION: Patient is a flare up of colitis/diverticulitis with small abscess. PLAN: This patient is responding to medical management. I imagine this will resolve. For followup she can see a benzene washer for colonoscopy sometime in the near future. She is quite happy with this plan.
[2018-10-30] MEDS: CIPROFLOXACIN 400mg IV 400 MG/200 ML BAG IV SCH (22:12)
[2018-10-31] MEDS: METRONIDAZOLE 500mg IVPB 500 MG/100 ML BAG IV SCH ×3 (01:00→17:15)
[2018-10-31] MEDS: NA CHLORIDE 0.9% 1,000 ML IV SCH ×4 (01:00→22:53)
[2018-10-31 04:18] LABS: Absolute Lymphocytes (CBC) 0.9 K/uL (0.7-4.9); Absolute Monocytes 1.1 K/uL (0.1-1.3); Absolute Neutrophil 8.2 K/uL (1.8-8.0); Basophils % 0.2 % (0-1.3); Eosinophils % 0.2 % (0-4.4); Hematocrit 35.6 % (36.0-45.0); MPV 9.2 fL (7.6-11.3); Monocytes % 10.8 % (3.3-12.3); RBC Red Blood Cell Count 3.91 M/uL (3.86-4.86)
[2018-10-31 04:37] LABS: ALT/SGPT 31 U/L (12-78); AST/SGOT 8 U/L (15-37); Albumin 2.4 g/dL (3.4-5.0); Alkaline Phosphatase 75 U/L (45-117); BUN Blood Urea Nitrogen 19 mg/dL (7-18); Bicarbonate 24 mmol/L (21-32); Bilirubin Total 1.4 mg/dL (0.2-1.0); Glucose Level 89 mg/dL (74-106); Potassium 3.5 mmol/L (3.5-5.1); Protein, Total 5.7 g/dL (6.4-8.2); Sodium Level 137 mmol/L (136-145)
[2018-10-31] MEDS ORDERED: DIGOXIN 0.25 MG/ML AMP ONE (05:20)
[2018-10-31 06:07] LABS: CKMB Creatine Kinase MB < 1.0 ng/mL (0.3-3.6); Creatine Phosphokinase 29 U/L (26-192); Troponin I 0.13 ng/mL (0.0-0.045)
[2018-10-31] MEDS: PANTOPRAZOLE 40MG TABLET PO SCH (06:30)
[2018-10-31] MEDS ORDERED: POTASSIUM CL SA 10 MEQ TAB PO ONE (06:36)
[2018-10-31] MEDS ORDERED: NA CHLORIDE 0.9% 500 ML IV ONE (06:47)
[2018-10-31] MEDS ORDERED: SOTALOL HCL 80 MG TAB PO ONE (07:47)
[2018-10-31] MEDS: ENOXAPARIN 60 MG/0.6 ML SQ SCH ×2 (08:48→22:52)
[2018-10-31] MEDS: CIPROFLOXACIN 400mg IV 400 MG/200 ML BAG IV SCH ×2 (09:45→22:52)
--- NOTE | 2018-10-31 10:30 | EKG ---
Test Date: 2018-10-31 Test Time: 07:59:02 Outsole Beveler: [place] MEASUREMENT RESULTS: Intervals: Rate: 114 [place]: 148 QRSD: 84 QT: 316 QTc: 435 [place]: P: 68 [place]: 148 QRS: -18 T: 89 INTERPRETIVE STATEMENTS: Sinus tachycardia Nonspecific T wave abnormality Abnormal ECG Compared to ECG 10/31/2018 05:06:20 T-wave abnormality now present Atrial fibrillation no longer present ST (T wave) deviation no longer present Electronically Signed On 10-31-18 10:29:42 RECRUITER COORDINATOR by Moe Argueta
--- NOTE | 2018-10-31 10:30 | EKG ---
Test Date: 2018-10-31 Test Time: 05:06:20 Armature Balancer: RT-O MEASUREMENT RESULTS: Intervals: Rate: 168 TN: QRSD: 80 QT: 254 QTc: 424 [place]: P: TN: QRS: -11 T: 151 INTERPRETIVE STATEMENTS: Atrial fibrillation with rapid ventricular response Marked ST abnormality, possible lateral subendocardial injury Abnormal ECG Compared to ECG 10/28/2018 17:25:51 Sinus tachycardia no longer present ST (T wave) deviation still present Electronically Signed On 10-31-18 10:29:45 RADIUS GRINDER by Moe Argueta
--- NOTE | 2018-10-31 11:49 | P.PN ---
Subjective Date of Service: 10/31/18 Primary Care Provider: Dr. Gunter([place], [place]) Chief Complaint: Pulmonary embolism Subjective: Other (Patient developed new onset atrial fibrillation early this morning. Patient given IV fluids. This has resolved. Pain to the left lower quadrant but improved. Diarrhea slight improvement) Physical Examination - Vital Signs Temperature: 98.1 F Blood Pressure: 101/56 Pulse: 109 Respirations: 18 Pulse Ox (%): 95 - Physical Exam General: Alert, In no apparent distress, Oriented x3, Cooperative HEENT: Atraumatic Neck: Supple Respiratory: Clear to auscultation bilaterally, Normal air movement Cardiovascular: Irregular heart rate/rhythm (Earlier with atrial fibrillation now with sinus tachycardia) Gastrointestinal: Normal bowel sounds, Soft and benign, Non-distended, Tenderness (Pain to the left lower quadrant but improved) Integumentary: No tenderness/swelling, No erythema, No warmth, No cyanosis Neurological: Normal speech, Normal strength at 5/5 x4 extr, Normal tone, Normal affect - Studies Medications List Reviewed: Yes Assessment & Plan Discharge Plan: Home Plan to discharge in: Greater than 2 days Physician Review Additional Text: Impression: Shortness of breath secondary to bilateral pulmonary embolism with noted hypoxia New onset atrial fibrillation Acute sigmoid diverticulitis with possible lindy diverticular abscess 22 x 13 mm Hypertension Elevated liver function Diarrhea, history of colitis Plan: Shortness of breath secondary to bilateral pulmonary embolism with noted hypoxia : Continue with anti coagulation therapy. Will try to wean off oxygen. Will need to see if the patient will qualify to get either Eliquis or Xarelto at discharge New onset atrial fibrillation: Patient had atrial fibrillation with RVR early this morning. Patient given IV fluid boluses and started on medication. Patient seen by Cardiology. Patient now on Betapace. Continue with anti coagulation therapy. Await further recommendations from cardiology. Acute diverticulitis with possible lindy diverticular abscess 22 x 13 mm: Patient started on Cipro and Flagyl yesterday. Patient also evaluated by surgery. Continue with surgery recommendation. No surgical intervention required at this time. Continue with antibiotic therapy. Patient tolerating current diet. Will slowly advance. Hypertension: Blood pressure low. Metoprolol was discontinued yesterday. Will monitor this closely. Elevated liver function: Slight elevation in liver function. Will check hepatitis panel. Will monitor liver function Time Spent Managing Pts Care (In Minutes): 55
--- NOTE | 2018-10-31 12:05 | PN ---
She was admitted about a week ago with pulmonary emboli, now went into atrial fibrillation. We will give Betapace and as her blood pressure is a little low, I think she will tolerate the Betapace and g et back in normal rhythm and be doing much better. If not, we can do a cardioversion tomorrow emerge ntly if needed. PIERCE/DAMIEN Voice ID: [id number] Report ID: [id number]
[2018-10-31] MEDS: ONDANSETRON 4 MG/2 ML VIAL IV PRN (15:13)
[2018-10-31] MEDS: SOTALOL HCL 80 MG TAB PO SCH (17:15)
[2018-11-01] MEDS: METRONIDAZOLE 500mg IVPB 500 MG/100 ML BAG IV SCH ×3 (00:37→17:30)
[2018-11-01] MEDS: ONDANSETRON 4 MG/2 ML VIAL IV PRN ×2 (01:05→21:16)
[2018-11-01 05:47] LABS: Absolute Lymphocytes (CBC) 0.7 K/uL (0.7-4.9); Absolute Monocytes 1.2 K/uL (0.1-1.3); Absolute Neutrophil 9.7 K/uL (1.8-8.0); Basophils % 0.4 % (0-1.3); Lymphocytes % 5.8 % (15.3-44.8); MPV 9.2 fL (7.6-11.3); Monocytes % 10.2 % (3.3-12.3)
[2018-11-01 06:06] LABS: Magnesium 1.7 mg/dL (1.8-2.4); Potassium 3.4 mmol/L (3.5-5.1)
[2018-11-01] MEDS ORDERED: POTASSIUM CL SA 10 MEQ TAB PO ONE (06:16)
[2018-11-01] MEDS ORDERED: MAGNESIUM SULFATE 1 gm IVPB 1 GM/100 ML BAG IV ONE (06:17)
[2018-11-01] MEDS: SOTALOL HCL 80 MG TAB PO SCH ×2 (07:43→17:30)
[2018-11-01] MEDS: PANTOPRAZOLE 40MG TABLET PO SCH (07:44)
[2018-11-01] MEDS: CIPROFLOXACIN 400mg IV 400 MG/200 ML BAG IV SCH ×2 (09:56→20:14)
[2018-11-01] MEDS: ENOXAPARIN 60 MG/0.6 ML SQ SCH ×2 (09:57→20:14)
--- NOTE | 2018-11-01 13:04 | PN ---
She is maintained in sinus rhythm and she is fully anticoagulated. She seems to have a problem with diverticulitis, it may be slowly improving. I think the patient's activity could be increased to amb ulation with assist if Dr. Whatley agrees. PIERCE/DAMIEN Voice ID: [id number] Report ID: [id number]
--- NOTE | 2018-11-01 14:07 | P.PN ---
Subjective Date of Service: 11/01/18 Primary Care Provider: Dr. Gunter([place], [place]) Chief Complaint: Pulmonary embolism Subjective: Improving Physical Examination - Vital Signs Temperature: 98.3 F Blood Pressure: 119/69 Pulse: 85 Respirations: 16 Pulse Ox (%): 94 - Physical Exam General: Alert, In no apparent distress, Oriented x3, Cooperative HEENT: Atraumatic Neck: Supple Respiratory: Clear to auscultation bilaterally, Normal air movement Cardiovascular: Normal pulses, Regular rate/rhythm Gastrointestinal: Normal bowel sounds, Soft and benign, Non-distended, Tenderness (Less pain to the left lower quadrant.) Neurological: Normal speech, Normal strength at 5/5 x4 extr, Normal tone, Normal affect - Studies Medications List Reviewed: Yes Assessment & Plan Discharge Plan: Home Plan to discharge in: 48 Hours Physician Review Additional Text: Impression: Shortness of breath secondary to bilateral pulmonary embolism with noted hypoxia New onset atrial fibrillation Acute sigmoid diverticulitis with possible lindy diverticular abscess 22 x 13 mm Hypertension Elevated liver function Diarrhea, history of colitis Plan: Shortness of breath secondary to bilateral pulmonary embolism with noted hypoxia : Continue with anti coagulation therapy. Will try to wean off oxygen. Likely Xarelto at discharge as this may be the most affordable for her. New onset atrial fibrillation: Patient now in sinus rhythm with Betapace. Continue with anti coagulation therapy. Acute diverticulitis with possible lindy diverticular abscess 22 x 13 mm: Patient on Cipro and Flagyl. Continue antibiotic therapy. Will advance diet. Encourage ambulation. Anticipate discharge once this has improved. Hypertension: Will monitor this closely. Elevated liver function: Slight elevation in liver function. Will check hepatitis panel. Will monitor liver function Time Spent Managing Pts Care (In Minutes): 55
--- NOTE | 2018-11-01 14:18 | P.PN ---
Date of Service: 11/01/18 S: Patient has no specific complaints, says she still has had pain in her lower abdomen however is not as severe. Having frequent loose stools appear to be less than yesterday. O: Abdomen and has some left lower quadrant tenderness. No guarding or rebound. A: Patient appears to be stable and has made some progress on IV antibiotics. P: Continue current therapy.
[2018-11-01] MEDS: NA CHLORIDE 0.9% 1,000 ML IV SCH ×3 (17:00→20:15)
[2018-11-02] MEDS: METRONIDAZOLE 500mg IVPB 500 MG/100 ML BAG IV SCH ×2 (00:47→08:17)
[2018-11-02 05:27] LABS: HBsAG Nonreactive (Nonreactive); Hepatitis A IgM Antibody Nonreactive
[2018-11-02 05:41] LABS: Absolute Lymphocytes (CBC) 0.7 K/uL (0.7-4.9); Absolute Neutrophil 7.5 K/uL (1.8-8.0); Basophils % 0.4 % (0-1.3); Eosinophils % 3.8 % (0-4.4); Hematocrit 31.4 % (36.0-45.0); Lymphocytes % 7.7 % (15.3-44.8); MPV 9.4 fL (7.6-11.3); Monocytes % 10.4 % (3.3-12.3); RBC Red Blood Cell Count 3.43 M/uL (3.86-4.86)
[2018-11-02] MEDS: SOTALOL HCL 80 MG TAB PO SCH (05:42)
[2018-11-02] MEDS: PANTOPRAZOLE 40MG TABLET PO SCH (05:43)
[2018-11-02 05:55] LABS: Magnesium 2.1 mg/dL (1.8-2.4); Potassium 3.6 mmol/L (3.5-5.1)
[2018-11-02] MEDS ORDERED: POTASSIUM CL SA 10 MEQ TAB PO ONE (06:32)
[2018-11-02] MEDS: CIPROFLOXACIN 400mg IV 400 MG/200 ML BAG IV SCH (08:18)
[2018-11-02] MEDS: ENOXAPARIN 60 MG/0.6 ML SQ SCH (08:18)
--- NOTE | 2018-11-02 11:05 | P.DS ---
Admission Date: 10/27/18 Discharge Date: 11/02/18 Primary Care Provider: Dr. Gunter([place], [place]) Disposition: ROUTINE DISCHARGE Discharge Condition: GOOD Reason for Admission: Pulmonary embolism Consultations: Cardiology-Dr. Argueta Pulmonary-Dr. Whatley Surgery-Dr. Stevens Procedures: CT chest: COMPARISON: None. TECHNIQUE: Dynamically enhanced 3 mm thick images of the chest were obtained during administration of approximately 150mL Isovue 370 IV contrast. Coronal and oblique MIP reconstruction images were generated and reviewed. Exam utilizes a protocol to evaluate the pulmonary arterial tree. All CT scans are performed using dose optimization technique as appropriate and may include automated exposure control or mA/KV adjustment according to patient size. FINDINGS: Patient has large pulmonary emboli at the bifurcation of each pulmonary artery into the lobar branches. Pulmonary embolic disease extends into the left upper and lower lobe pulmonary arteries. Embolic disease extends into the right upper and right lower lobe pulmonary arteries. Right lower lobe embolic disease extends into segmental branches. The aorta as imaged shows no acute or suspicious finding. No pericardial thickening or effusion. Airspace opacification posterior gutter on the right could be pneumonia. In the setting of pulmonary embolic disease, pulmonary hemorrhage is not excluded. No pleural effusion or pleural thickening. No mediastinal or hilar suspicious masses. No chest wall masses or abnormal axillary lymphadenopathy. A 10 millimeter pulmonary nodule abuts the pleura lateral lower left lung field. This is centrally hyperdense and 160 Hounsfield units and is probably partially mineralized granuloma. IMPRESSION: Extensive pulmonary embolic disease in each pulmonary artery extending into the left upper, left lower, right upper and right lower lobe pulmonary arteries. Right lower lobe embolic disease extends into segmental branches. Patchy airspace opacification in the posterior gutter on the right. This is typically pneumonia. Given the extent of pulmonary embolic disease, pulmonary hemorrhage is not excluded. No other significant or suspicious findings. ECHO: EF 66% LEFT VENTRICULAR WALL MOTION: NORMAL DOPPLER/COLOR FLOW: MILD AORTIC AND TRICUSPID REGURGITATION. ESTIMATED RIGHT VENTRICULAR SYSTOLIC PRESSURE 40 mmHg (MILD PULMONARY HYPERTENSION). COMMENTS: NORMAL 2-DIMENSIONAL ECHOCARDIOGRAM. MILD AORTIC AND TRICUSPID REGURGITATION. MILD PULMONARY HYPERTENSION. CT AB: COMPARISON: Chest For Pe Angio dated 10/27/2018 TECHNIQUE: Biphasic CT imaging of the abdomen and pelvis was performed with 100 ml non-ionic IV contrast. All CT scans are performed using dose optimization technique as appropriate and may include automated exposure control or mA/KV adjustment according to patient size. FINDINGS: Respiratory artifact limits lung base assessment. Please reference dedicated CT chest 10/27/2018 for lung base findings. Mild fatty liver is seen. Cholecystectomy clips are noted. Common bile duct is prominent measuring 12 mm. Pancreatic duct is slightly prominent. The spleen, adrenal glands, pancreas and left kidney show no concerning finding. Small cortical cyst present left kidney. Right kidney contains a large 6 x 5 cm cyst medially. No bowel obstruction, free air, free fluid or abscess. Moderate thickening of a 5 cm segment of the sigmoid colon is present in the left lower quadrant. Several diverticula are present in this region. Moderate pericolonic inflammatory changes are present. Small peridiverticular abscess is present measuring 22 x 13 mm. A small amount of extraluminal air is also present in the region. The appendix is nonvisualized. No evidence of significant lymphadenopathy. No suspicious bony findings. 2.5 cm right ovarian cystic lesion. IMPRESSION: 5 cm length of inflamed sigmoid colon is most compatible with moderate acute diverticulitis. 22 x 13 mm peridiverticular abscess suspected. Medical Problem List: Shortness of breath secondary to extensive pulmonary embolic disease extending to the left upper, left lower, right upper, right lower pulmonary arteries noted hypoxia with noted mild pulmonary hypertension New onset atrial fibrillation Acute sigmoid diverticulitis with possible lindy diverticular abscess 22 x 13 mm Hypertension Elevated liver function Diarrhea, history of colitis CT finding of 2.5 cm right ovarian cyst Mild anemia GERD Brief History of Present Illness: 68-year-old female presented to the emergency room with increasing shortness of breath. Patient found to have extensive bilateral pulmonary emboli. Patient was admitted for treatment. Hospital Course: Patient presented with shortness of breath, hypoxia secondary to extensive pulmonary embolic disease extending to the left upper, left lower, right upper and right lower pulmonary arteries. Patient was treated with anti coagulation therapy during her stay. Echocardiogram showed mild pulmonary hypertension. Patient seen and evaluated by pulmonology. Pulmonology recommended to continue with anti coagulation therapy. At discharge patient will continue with Xarelto 15 mg 1 pill twice daily with food for 21 days then 20 mg once daily with food up to 6 months. Recommend to follow up with pulmonology in 1-2 weeks to follow up this hospitalization and continue her care. Recommend to recheck lab-BMP and CBC within 1-2 weeks to follow her progress. Patient also found to have new onset atrial fibrillation. Patient was started on anti rhythmic medication-Betapace. Patient seen and evaluated by Cardiology. Patient responded well to medication. Patient now in sinus rhythm. At discharge she will continue with Betapace 80 mg 1 pill twice daily along with chronic anti coagulation therapy as stated above. Recommend to follow up with cardiology in 1-2 weeks to follow up this hospitalization. Patient with history of colitis. During her stay she developed abdominal pain. Patient found to have acute sigmoid diverticulitis with possible lindy diverticular abscess. This measured 22 x 13 mm. Patient seen and evaluated by surgery. No surgical intervention was required. Patient was started on antibiotic therapy and improved. At discharge she will continue with Cipro 500 mg twice daily and Flagyl 500 mg 3 times a day for 10 days. At discharge patient tolerating soft diet. She will continue with a soft diet and follow up with surgery within 1 week to follow up this hospitalization and continue her care. Patient may require repeat CT scan in the near future to follow up on abscess. Patient will require colonoscopy in the future with GI in 6-[address] scan also showed 2.5 cm right ovarian cyst. Recommend to follow up with gynecology as an outpatient to further monitor. Patient with history of hypertension. Metoprolol discontinued since the patient is on Betapace. Blood pressure remained stable. This can be further monitored and addressed by cardiology as an outpatient. Patient had mild anemia adding her stay. This remained stable. Recommend to recheck lab-CBC in 1-2 weeks to monitor progress. Patient will also continue with multi vitamin daily. Patient may have underlying GERD. Patient will continue with Protonix 40 mg 1 pill daily. Recommend follow up with GI to further monitor. Vital Signs/Physical Exam: Temp Pulse Resp BP Pulse Ox 99.1 F 83 18 121/82 97 11/02/18 08:00 11/02/18 08:00 11/02/18 08:00 11/02/18 08:00 11/02/18 08:00 General: Alert, In no apparent distress, Oriented x3, Cooperative HEENT: Atraumatic Neck: Supple Respiratory: Clear to auscultation bilaterally, Normal air movement Cardiovascular: Normal pulses, Regular rate/rhythm Gastrointestinal: Normal bowel sounds, Soft and benign, Non-distended, No masses , No rebound, No guarding, Tenderness (Minimal pain to the left lower quadrant) Musculoskeletal: No erythema, No tenderness, No warmth Integumentary: No tenderness/swelling, No erythema, No warmth, No cyanosis Neurological: Normal speech, Normal strength at 5/5 x4 extr, Normal tone, Normal affect Laboratory Data at Discharge: WBC 9.6 K/uL (4.3-10.9) D 11/02/18 05:24 Hgb 10.3 g/dL (12.0-15.0) L 11/02/18 05:24 Hct 31.4 % (36.0-45.0) L 11/02/18 05:24 Plt Count 162 K/uL (152-406) 11/02/18 05:24 PT 11.8 SECONDS (9.5-12.5) 10/27/18 13:56 INR 1.00 10/27/18 13:56 APTT 67.6 SECONDS (24.3-36.9) H 10/28/18 08:10 Sodium 141 mmol/L (136-145) 11/02/18 05:24 Potassium 3.6 mmol/L (3.5-5.1) 11/02/18 05:24 BUN 5 mg/dL (7-18) L 11/02/18 05:24 Creatinine 0.71 mg/dL (0.55-1.3) 11/02/18 05:24 Glucose 105 mg/dL (74-106) 11/02/18 05:24 Magnesium 2.1 mg/dL (1.8-2.4) 11/02/18 05:24 Total Bilirubin 1.4 mg/dL (0.2-1.0) H 10/31/18 03:46 AST 8 U/L (15-37) L 10/31/18 03:46 ALT 31 U/L (12-78) 10/31/18 03:46 Alkaline Phosphatase 75 U/L (45-117) 10/31/18 03:46 Troponin I 0.13 ng/mL (0.0-0.045) H 10/31/18 03:46 Lipase 150 U/L (73-393) 10/27/18 13:56 Home Medications: Rivaroxaban [Xarelto] 15 mg PO SEECOM #42 tablet 10/31/18 Rivaroxaban [Xarelto] 20 mg PO SEECOM #30 tablet 10/31/18 Ciprofloxacin HCl [Cipro 500 MG Tablet] 500 mg PO BID #20 tab 11/02/18 Multivitamin [Daily Multiple Vitamin] 1 each PO DAILY #90 tablet 11/02/18 Pantoprazole [Protonix Tab*] 40 mg PO DAILYAC #30 tab 11/02/18 Sotalol HCl [Betapace*] 80 mg PO BID 6AM 6PM #60 tab 11/02/18 Tramadol HCl [Ultram] 50 mg PO TID PRN #15 tablet 11/02/18 metroNIDAZOLE [Flagyl] 500 mg PO Q8H #30 tablet 11/02/18 New Medications: Ciprofloxacin HCl [Cipro 500 MG Tablet] 500 mg PO BID #20 tab metroNIDAZOLE [Flagyl] 500 mg PO Q8H #30 tablet Multivitamin [Daily Multiple Vitamin] 1 each PO DAILY #90 tablet Pantoprazole [Protonix Tab*] 40 mg PO DAILYAC #30 tab Rivaroxaban [Xarelto] 15 mg PO SEECOM #42 tablet Rivaroxaban [Xarelto] 20 mg PO SEECOM #30 tablet Sotalol HCl [Betapace*] 80 mg PO BID 6AM 6PM #60 tab Tramadol HCl [Ultram] 50 mg PO TID PRN #15 tablet PRN Reason: Pain Scale 2-4 (Mild) Patient Discharge Instructions: 1. Patient will need to follow up with pulmonology within 1 week to follow up this hospitalization. 2. Patient presented with shortness of breath, hypoxia secondary to extensive pulmonary embolic disease extending to the left upper, left lower, right upper and right lower pulmonary arteries. Patient was treated with anti coagulation therapy during her stay. Echocardiogram showed mild pulmonary hypertension. Patient seen and evaluated by pulmonology. Pulmonology recommended to continue with anti coagulation therapy. At discharge patient will continue with Xarelto 15 mg 1 pill twice daily with food for 21 days then 20 mg once daily with food up to 6 months. Recommend to follow up with pulmonology in 1-2 weeks to follow up this hospitalization and continue her care. Recommend to recheck lab-BMP and CBC within 1-2 weeks to follow her progress. 3. Patient also found to have new onset atrial fibrillation. Patient was started on anti rhythmic medication- Betapace. Patient seen and evaluated by Cardiology. Patient responded well to medication. Patient now in sinus rhythm. At discharge she will continue with Betapace 80 mg 1 pill twice daily along with chronic anti coagulation therapy as stated above. Recommend to follow up with cardiology in 1-2 weeks to follow up this hospitalization. 4. Patient with history of colitis. During her stay she developed abdominal pain. Patient found to have acute sigmoid diverticulitis with possible lindy diverticular abscess. This measured 22 x 13 mm. Patient seen and evaluated by surgery. No surgical intervention was required. Patient was started on antibiotic therapy and improved. At discharge she will continue with Cipro 500 mg twice daily and Flagyl 500 mg 3 times a day for 10 days. At discharge patient tolerating soft diet. She will continue with a soft diet and follow up with surgery within 1 week to follow up this hospitalization and continue her care. Patient may require repeat CT scan in the near future to follow up on abscess. Patient will require colonoscopy in the future with GI in 6-8 weeks further address. 5. CT scan also showed 2.5 cm right ovarian cyst. Recommend to follow up with gynecology as an outpatient to further monitor. 6. Patient with history of hypertension. Metoprolol discontinued since the patient is on Betapace. Blood pressure remained stable. This can be further monitored and addressed by cardiology as an outpatient. 7. Patient had mild anemia adding her stay. This remained stable. Recommend to recheck lab-CBC in 1-2 weeks to monitor progress. Patient will also continue with multi vitamin daily. 8. Patient may have underlying GERD. Patient will continue with Protonix 40 mg 1 pill daily. Recommend follow up with GI to further monitor. Diet: AHA Activity: Fall precautions Time spent managing pt's care (in minutes): 55
--- NOTE | 2018-11-02 11:38 | PN ---
Ms. Minor remains in sinus rhythm. I suspect if her diverticulitis resolves, she will be discharged home. She is now tolerating a full liquid diet and feeling better. VIRAL Voice ID: [id number] Report ID: [id number]
[2018-11-02] MEDS: ONDANSETRON 4 MG/2 ML VIAL IV PRN (11:54)
[2018-11-02] MEDS: NA CHLORIDE 0.9% 1,000 ML IV SCH (13:00)
== END 2018-11-02 15:12 | disposition home or self-care (01) | DRG 176 ==
LOC: ER 13:19 → ERHOLD 15:30 → 3RD-ICU 17:40 → 4TH 10-28 18:42
PROVIDERS: ADMIT Family Medicine; ATTEND Family Medicine
DX: I26.09 Other pulmonary embolism with acute cor pulmonale (principal); K57.20 Diverticulitis of large intestine with perforation and abscess without bleeding; K51.90 Ulcerative colitis, unspecified, without complications; R09.02 Hypoxemia; I27.20 Pulmonary hypertension, unspecified; I48.91 Unspecified atrial fibrillation; R94.5 Abnormal results of liver function studies; I10 Essential (primary) hypertension; R19.7 Diarrhea, unspecified; N83.201 Unspecified ovarian cyst, right side; D64.9 Anemia, unspecified; K21.9 Gastro-esophageal reflux disease without esophagitis; R00.0 Tachycardia, unspecified
CPT/HCPCS: 36415; 71275; 74177; 80048; 80053; 80074; 82550; 82553; 82805; 83690; 83735; 83880; 84132; 84145; 84484; 85025; 85610; 85730; 87040; 87493; 93005; 93306; 99285; G0008; J0744; J1160; J1644; J1650; J1720; J2405; J2765; J3475; J7030; J7512; Q2035; Q9967